=== PATIENT | male | born 1965 | race Two or more races ===

== ENCOUNTER → 2016-07-26 | Outpatient (CLI) | payer MEDICARE ==
[~2016-07-26] VITALS: Ht 172.7 cm; Wt 81.6 kg
[~2016-07-26] MED LIST: Lidocaine 1% Plain 30 ml INJ PRN; Sodium Bicarbonate 8.4% 50ml Inj IV PRN
--- NOTE | 2016-07-28 10:15 | Diagnostic Imaging Report ---
Indications: Needs long-term IV access Technique: Ultrasound confirms patent compressible right brachial vein. Total sterile technique, including sterile probe cover and sterile gel, hat, mask,, sterile gown, large sterile drape, and preparation with 2% chlorhexidine utilized. Local anesthesia with 1% lidocaine. Under real-time ultrasound guidance, puncture vein using 21-gauge needle, documented and archived, passage 0.018 guidewire under direct fluoroscopy, which would not pass beyond the axilla despite multiple manipulations. A new vein was punctured, and the guidewire failed to pass. Contrast was injected and venogram was performed, demonstrating patency of the axillary and central veins, but the guidewire kept following a distributary vein. Finally after a third venipuncture into the brachial vein, the guidewire did pass centrally. It was used to determine appropriate catheter length, exchange for 5 [place] peel-away sheath. 5 [place] Bard dual-lumen power PICC cut to 30 cm. It was inserted through the peel-away sheath. Peel-away sheath and guidewire removed. Catheter fixed to the skin. Both catheter ports aspirated and flushed. Patient tolerated procedure well, without immediate complication. Digital radiograph documents satisfactory catheter tip position, at the cavoatrial junction. Total fluoroscopy time 2.3 minutes. Total dose area product 26 dGycm2 Impression: Successful placement of right arm PICC under sonographic and fluoroscopic guidance, as described above.
== END | disposition home or self-care (01) ==
LOC: RAD 12:16
DX: Z79.899 Other long term (current) drug therapy (principal)
CPT/HCPCS: 36569; 75820; 76937; Q9967